=== PATIENT | female | born 1970 | race Caucasian/White ===

== ENCOUNTER → 2016-09-04 | Outpatient (CLI) | payer BC ==
[~2016-09-04] MED LIST: ALDACTONE50 MG PO; B50 COMPLEX; BIOTIN1 MG PO; CALCIUM 600 + V1 TA1 PO; CENTRUM1 TAB PO; CLARITIN 1010 MG/TAB PO; DOXYCYCLINE 50M50 MG; FISH OIL1000 MG PO; FLONASE NASAL S16 GM NS; HCTZ12.5TAB PO; LEXAPRO 10MG10 MG PO; MAGNESIUM250 M1 PO; PATANOL OPHTHALM5 ML OU; PRILOSEC 20MG20 MG PO; RESTORIL 1515 MG/CAP; TEGRETOL 1100 MG/TAB; VIT B 12; VIT C
== END ==
LOC: BHSO 10:58
DX: F31.81 Bipolar II disorder (principal)

== ENCOUNTER → 2016-10-23 | Outpatient (CLI) | payer BC | LOC: BHSO 10:58 | DX: F31.81 Bipolar II disorder (principal) ==

== ENCOUNTER → 2016-10-26 | Outpatient (CLI) | payer BC | LOC: BHSO 15:25 | DX: F41.1 Generalized anxiety disorder (principal) ==

== ENCOUNTER → 2016-11-27 | Outpatient (CLI) | payer BC | LOC: BHSO 11:00 | DX: F31.81 Bipolar II disorder (principal) ==

== ENCOUNTER → 2016-12-25 | Outpatient (CLI) | payer BC | LOC: BHSO 11:11 | DX: F31.81 Bipolar II disorder (principal) ==

== ENCOUNTER → 2017-01-19 | Outpatient (CLI) | payer BC | LOC: BHSO 13:21 | DX: F31.0 Bipolar disorder, current episode hypomanic (principal) ==

== ENCOUNTER → 2017-01-29 | Outpatient (CLI) | payer BC | LOC: MC.RAD 12-14 08:00 | DX: Z12.31 Encounter for screening mammogram for malignant neoplasm of breast (principal) ==

== ENCOUNTER → 2017-01-30 | Outpatient (CLI) | payer BC | LOC: BHSO 11:00 | DX: F31.81 Bipolar II disorder (principal) ==

== ENCOUNTER → 2017-03-06 | Outpatient (CLI) | payer BC | LOC: BHSO 11:10 | DX: F31.81 Bipolar II disorder (principal) ==

== ENCOUNTER → 2017-04-17 | Outpatient (CLI) | payer BC | LOC: BHSO 11:10 | DX: F31.81 Bipolar II disorder (principal) ==

== ENCOUNTER → 2017-08-30 | Outpatient (CLI) | payer BC | LOC: BHSO 15:31 | DX: F41.1 Generalized anxiety disorder (principal) | CPT/HCPCS: G0463 ==

== ENCOUNTER → 2018-03-18 | Outpatient (CLI) | payer BC | LOC: BHSO 09:02 | DX: F31.81 Bipolar II disorder (principal) | CPT/HCPCS: G0463 ==

== ENCOUNTER → 2018-09-17 | Outpatient (CLI) | payer BC | LOC: MC.RAD 08:00 | DX: Z12.31 Encounter for screening mammogram for malignant neoplasm of breast (principal) ==

== ENCOUNTER → 2018-09-27 | Outpatient (CLI) | payer BC | LOC: BHSO 08:16 | DX: F31.81 Bipolar II disorder (principal) | CPT/HCPCS: G0463 ==

== ENCOUNTER → 2018-11-27 | Outpatient (CLI) | payer BC | LOC: BHSO 08:05 | DX: F31.81 Bipolar II disorder (principal) | CPT/HCPCS: G0463 ==

== ENCOUNTER → 2019-02-13 | Outpatient (CLI) | payer BC | LOC: BHSO 07:59 | DX: F31.81 Bipolar II disorder (principal) | CPT/HCPCS: G0463 ==

== ENCOUNTER → 2019-05-13 | Outpatient (CLI) | payer BC | LOC: BHSO 08:09 | DX: F31.81 Bipolar II disorder (principal) | CPT/HCPCS: G0463 ==

== ENCOUNTER → 2020-02-05 | Outpatient (CLI) | payer BC | LOC: BHSO 08:05 | DX: F31.81 Bipolar II disorder (principal) | CPT/HCPCS: G0463 ==

== ENCOUNTER → 2020-03-11 | Outpatient (CLI) | payer BC | LOC: MC.RAD 11:00 | DX: Z12.31 Encounter for screening mammogram for malignant neoplasm of breast (principal) ==

== ENCOUNTER 2021-02-07 20:52 | Emergency (ER) | payer BC ==
[~2021-02-07] VITALS: Ht 167.6 cm; Wt 81.8 kg
[2021-02-07 21:16] VITALS: TEMP 99.2
[2021-02-07 22:18] LABS: COLLECTION METHOD CLEAN CATCH
[2021-02-07 22:22] LABS: HEMATOCRIT 43.3 % (37.0-47.0); HEMOGLOBIN 14.9 g/dl (12.5-16.0); MEAN CELL VOLUME 92 fl (80.0-100.0); MEAN CORPUSCULAR HEMOGLOBIN 32 pg (27.0-31.0); MEAN CORPUSCULAR HGB CONC 34 g/dl (33.0-37.0); MEAN PLATELET VOLUME 8.5 fl (7.4-10.4); PLATELET COUNT 292 K/mm3 (130-400); RED BLOOD COUNT 4.71 M/mm3 (4.10-5.30); REDCELL DISTRIBUTION WIDTH-CV 12.5 % (11.5-14.5)
[2021-02-07 22:26] LABS: MUCOUS Present /lpf; PH 6 (5-8); SQUAMOUS EPITHELIAL 0-2 /hpf; URINE APPEARANCE Clear; URINE BACTERIA None Seen /hpf; URINE BILIRUBIN Negative (NEGATIVE); URINE BLOOD Negative (NEGATIVE); URINE COLOR Yellow; URINE GLUCOSE Negative (NEGATIVE); URINE KETONE 2+ (NEGATIVE); URINE LEUKOCYTE ESTERASE Negative (NEGATIVE); URINE NITRATE Negative (NEGATIVE); URINE PROTEIN(semi-quant) 1+ (NEGATIVE); URINE RBC 0-2 /hpf; URINE UROBILINOGEN Negative (NEGATIVE)
[2021-02-07 22:34] LABS: BILIRUBIN,TOTAL 0.5 mg/dL (0.0-1.0); CALCIUM 9.3 mg/dL (8.4-10.2); CREATININE, serum 0.68 (0.52-1.25); POTASSIUM 4.2 mmol/L (3.4-5.0); TOTAL PROTEIN 8.6 gm/dL (6.4-8.2)
[2021-02-07 23:14] LABS: BAND 6 % (0-10); LYMPHOCYTE 2 % (20.0-51.0); NEUTROPHILS 86 % (42.0-75.2); PLATELET ESTIMATE NORMAL (NORMAL)
[2021-02-08] MEDS ORDERED: REGLAN 10MG10 MG/TAB PO (00:21)
[2021-02-08] MEDS ORDERED: ZOFRAN ODT4 MG PO (00:21)
[2021-02-08] MEDS ORDERED: PEPCID 20MG TAB20 MG PO (00:21)
[2021-02-08 01:12] VITALS: BP 145/95; PULSE 99
[2021-06-10] MEDS ORDERED: B-121000 MCG PO (06:33)
[2021-06-10] MEDS ORDERED: PROZAC 20MG20 MG PO (06:33)
[2021-06-10] MEDS ORDERED: VALTREX 50500 MG/TAB PO (06:34)
[2021-06-10] MEDS ORDERED: DESYREL 100MG100 MG PO (06:37)
[2021-06-10] MEDS ORDERED: LUNESTA 1MG TAB1 MG PO (06:37)
[2021-06-10] MEDS ORDERED: BACTRIM DS 8001 TAB PO (06:37)
[2021-06-10] MEDS ORDERED: SYSTANE 0.4%-0.1 SOL OP (06:39)
[2021-06-10] MEDS ORDERED: DULCOLAX STOOL100 MG PO (06:40)
[2021-06-10] MEDS ORDERED: BLACK COHOSH40 MG PO (06:40)
[2021-06-10] MEDS ORDERED: VITAMIN D31000 I1 PO (06:45)
[2021-06-10] MEDS ORDERED: NORCO 325 MG-51 TAB PO (09:02)
== END 2021-02-08 01:19 | disposition home or self-care (01) ==
LOC: COL.ER 20:52
PROVIDERS: Emergency Medicine
DX: R11.2 Nausea with vomiting, unspecified (principal); R19.7 Diarrhea, unspecified; Z98.890 Other specified postprocedural states; Z88.6 Allergy status to analgesic agent
CPT/HCPCS: J2405; J2765; J7030

== ENCOUNTER → 2021-06-10 | Day surgery (SDC) | payer BC ==
[~2021-06-10] VITALS: Ht 167.6 cm; Wt 91.1 kg
[~2021-06-10] MED LIST changes: +B-121000 MCG PO; +BACTRIM DS 8001 TAB PO; +BLACK COHOSH40 MG PO; +DESYREL 100MG100 MG PO; +DULCOLAX STOOL100 MG PO; +LUNESTA 1MG TAB1 MG PO; +NORCO 325 MG-51 TAB PO; +PEPCID 20MG TAB20 MG PO; +PROZAC 20MG20 MG PO; +REGLAN 10MG10 MG/TAB PO; +SYSTANE 0.4%-0.1 SOL OP; +VALTREX 50500 MG/TAB PO; +VITAMIN D31000 I1 PO; +ZOFRAN ODT4 MG PO
[2021-06-10 06:13] VITALS: BP 133/83; PULSE 79; TEMP 97.8
[2021-06-10 09:45] VITALS: BP 120/78; PULSE 78; TEMP 97.8
--- NOTE | 2021-06-10 09:45 | NUR ---
Pt returns to [facility], alert and oriented but drowsy. O2/room air and pt's sats remain >94%. Pt denies nausea and pain is manageable at this time. VSS. Abdominal binder in place and repositioned and 3 bandaids clean and dry. Call light in reach. Pt will call boyfriend for ride home. Water provided.
[2021-06-10 10:00] VITALS: BP 115/72; PULSE 78
[2021-06-10 10:15] VITALS: BP 121/77; PULSE 73
--- NOTE | 2021-06-10 10:15 | NUR ---
Pt tolerates a few crackers well, denies nausea, pain medication given per orders. VSS. Call light in reach.
[2021-06-10 10:30] VITALS: BP 111/64; PULSE 77
--- NOTE | 2021-06-10 10:45 | NUR ---
Pt doing well, denies needs and is up to the bathroom and voids easily. Pain manageable. Discharge instructions provided to pt and boyfriend noted and pt taken out via wheelchair and left in [facility]'s care at 1120.
== END ==
LOC: SDCO 05:26
DX: K42.0 Umbilical hernia with obstruction, without gangrene (principal); K43.6 Other and unspecified ventral hernia with obstruction, without gangrene; G47.33 Obstructive sleep apnea (adult) (pediatric); D64.9 Anemia, unspecified; K21.9 Gastro-esophageal reflux disease without esophagitis; J45.909 Unspecified asthma, uncomplicated; E78.5 Hyperlipidemia, unspecified; F32.9 Major depressive disorder, single episode, unspecified; F41.9 Anxiety disorder, unspecified; Z79.899 Other long term (current) drug therapy; Z99.89 Dependence on other enabling machines and devices; Z20.822 Contact with and (suspected) exposure to COVID-19; Z90.710 Acquired absence of both cervix and uterus; Z83.3 Family history of diabetes mellitus
CPT/HCPCS: C1781; J0690; J1100; J1170; J1885; J2370; J2405; J2704; J3010; J7120

== ENCOUNTER → 2022-06-30 | Outpatient (CLI) | payer BC | LOC: MC.RAD 08:45 | DX: Z12.31 Encounter for screening mammogram for malignant neoplasm of breast (principal) ==

== ENCOUNTER → 2023-10-10 | Outpatient (CLI) | payer BC | LOC: MC.RAD 08:07 | DX: Z12.31 Encounter for screening mammogram for malignant neoplasm of breast (principal); N64.89 Other specified disorders of breast ==

== ENCOUNTER → 2023-10-15 | Outpatient (CLI) | payer BC | LOC: MC.RAD 08:00 | DX: N64.89 Other specified disorders of breast (principal) ==